=== PATIENT | female | born 1985 | race Caucasian/White ===

== ENCOUNTER 2019-11-04 01:58 | Outpatient (CLI) | payer BC, SELFPAY ==
[2019-11-04 18:39] LABS: SARS-CoV-2 RNA PCR Negative
== END 2019-11-04 01:59 | disposition home or self-care (01) ==
LOC: ANHCOVIDDT 01:58
PROVIDERS: PCP Family Medicine; Visit Provider Obstetrics & Gynecology
DX: Z01.812 Encounter for preprocedural laboratory examination (principal); Z11.59 Encounter for screening for other viral diseases
CPT/HCPCS: 87635; C9803; U0003

== ENCOUNTER 2019-11-04 09:25 | Outpatient (CLI) | payer BC, SELFPAY ==
[2019-11-04 09:46] LABS: Hemoglobin 12.9 g/dL (12.0-15.0)
== END 2019-11-04 09:26 | disposition home or self-care (01) ==
LOC: ANHSURGERY 09:27
PROVIDERS: PCP Family Medicine; Visit Provider Obstetrics & Gynecology
DX: N92.6 Irregular menstruation, unspecified (principal)
CPT/HCPCS: 36415; 85014; 85018

== ENCOUNTER 2019-11-06 02:22 | Day surgery (SDC) | payer BC, SELFPAY ==
[2019-10-22 16:13] VITALS: BMI 35.6
--- NOTE | 2019-11-04 08:03 | PM.IMHP ---
H&P: HPI History of Present Illness Chief complaint: Irregular Bleeding ,Uterine Polyp Narrative: Blessing Evans is a 34 year old female is admitted for hysteroscopy dilatation curettage. She has had a lot of bleeding and had an ultrasound. Ultrasound showed thickened endometrium questionable uterine polyp. Risks and benefits of hysteroscopy and D&C reviewed in great detail. She received the [employer] handout entitled hysteroscopy, and dilatation curettage, respectively. She had all questions answered. She asked to proceed Review of Systems Review of Systems: All systems reviewed & are unremarkable except as noted in HPI and below PMFSH Family History Family History Grandparent Cerebrovascular accident Diabetes mellitus Malignant neoplasm of prostate Family history of coronary artery disease Mother Family history of glaucoma Father Hypertension Social History Social History Smoking status: Never smoker Alcohol intake: current Drinks per week: 1 Substance use: never Substance use type: does not use Gender identity (if verbalized by the patient): Female Spiritual care concerns: No Meds Home Medications and Allergies Home Medications Medication Instructions Recorded Confirmed Type latanoprost 0.005 % eye drops 1 drop EACH EYE DAILY 10/05/19 10/22/19 History timolol 0.5 % eye drops 1 drop EACH EYE Q12H 10/05/19 10/22/19 History Allergies Allergy/AdvReac Type Severity Reaction Status Date / Time No Known Allergies Allergy Verified 10/22/19 16:13 Exam Const: General: no acute distress Eyes: General: appearance normal, both eyes and all related structures Neck: Neck: supple and no JVD Thyroid: thyroid normal Resp: Effort & Inspection: normal respiratory effort Auscultation: clear to auscultation bilaterally Cardio: Rate: regular rate Rhythm: regular rhythm GI: Inspection: non-distended GI Palp: Yes Soft to palpation, No Tenderness to palpation present (GI) and No Guarding due to palpation present (GI) Auscultation: normal bowel sounds : General: Yes bladder normal to inspection External Female Exam: normal external appearance Speculum Exam - Vagina: normal palpation and vaginal bleeding Bimanual exam- vagina & uterus: enlarged Bimanual Exam- Adnexa, other: no masses Skin: General skin exam: no rashes or lesions noted Extrem: General: normal to inspection and no edema Psych: Mental Status: mental status grossly normal Affect: normal affect Assessment and Plan Additional Plan impression: Vaginal bleeding with suspected polyp Plan: Hysteroscopy / dilatation curettage / possible polypectomy
--- NOTE | 2019-11-06 02:36 | WPDHPUPDATE1 ---
History and Physical Update Update Date/Time: 11/06/19 02:36 History and Physical has been reviewed, including an updated exam of the patient. There are NO changes in the patient's condition. Risks, benefits, and alternatives have been discussed and questions answered. Patient agrees to proceed with procedure.
--- NOTE | 2019-11-06 09:53 | WPDANESEPPF ---
Anes - Initial Pre Proc Eval Procedure: Operation Date: 11/06/19 11:30 Proposed Procedures p Hysteroscopy Dilation and Curettage, Polypectomy - Elias Huddleston MD Date/Time: 11/06/19 09:53 Surgeon: Elias Huddleston MD Pre Op Diagnosis: Irregular Bleeding ,Uterine Polyp Patient Data Age: 34 Gender: F Height: 1.8 m Weight: 116 kg Allergies Allergy/AdvReac Type Severity Reaction Status Date / Time No Known Allergies Allergy Verified 10/22/19 16:13 Home Medications Medication Instructions Recorded Confirmed Type latanoprost 0.005 % eye drops 1 drop EACH EYE DAILY 10/05/19 10/22/19 History timolol 0.5 % eye drops 1 drop EACH EYE Q12H 10/05/19 10/22/19 History hydrocodone-acetaminophen [[place]] 1 tablet PO Q4H PRN #20 tablet 11/06/19 Rx Patient hx anesthesia problems: none Family hx anesthesia problems: none PMFSH Past Medical History Medical History (Updated 11/06/19 @ 09:54 by Joshua Jovel MD) Eczema Obesity PCOS (polycystic ovarian syndrome) Family History Family History Grandparent Cerebrovascular accident Diabetes mellitus Malignant neoplasm of prostate Family history of coronary artery disease Mother Family history of glaucoma Father Hypertension Social History Social History Smoking status: Never smoker Alcohol intake: current Drinks per week: 1 Substance use: never Substance use type: does not use Living arrangements: with family Gender identity (if verbalized by the patient): Female Spiritual care concerns: No Anes - Eval Final PreProcedure Day of Procedure 11/06/19 09:53 Patient weight: obese Heart: regular rate and rhythm Lungs: clear to auscultation and normal air movement Airway: Mallampati scale class II Neurological: alert and oriented Last oral intake: >/= 8 hours ASA classification: II Emergent: no Anesthetic plan: proceed Anesthesia type and monitoring: general GIVS and LMA Informed Consent: The patient's anesthetic plan and its attendant risks and benefits were discussed with the patient/family/POA. Questions were solicited and answers provided to the satisfaction of the patient/family/POA.
[2019-11-06 09:56] VITALS: BP 133/80; PULSE 67; RESP 17; TEMP 36.4; O2SAT 100
[2019-11-06] MEDS: LACTATED RINGERS 1,000 ML 30 ML IV CONT (10:20)
[2019-11-06] MEDS: ACETAMINOPHEN 500 MG TABLET 1000 MG PO (10:25)
--- NOTE | 2019-11-06 11:36 | PM.PROC ---
Procedure Note - Detailed Date of procedure: 11/06/19 Pre-op diagnosis: Irregular Bleeding ,Uterine Polyp Surgeon: Elias Huddleston MD Postop diagnosis: Irregular bleeding Procedure: Hysteroscopy/dilatation curettage EBL: 5Cc Anesthesia: IV sedation local Complications: None Findings: Uterus sounded to 10cm thick irregular endometrial tissue was seen. Clots were seen. Each fallopian 2 Duff os could be seen and appeared normal Description procedure. : Patient was prepped draped in the normal sterile fashion placed in dorsal lithotomy position. Under excellent IV sedation weighted speculum placed in posterior fornix of vagina. Anterior lip of cervix was grasped with a single-tooth tenaculum. 2. 5Cc of 1% lidocaine was placed at 2, 4, 8, 10:00 a.m. in the cervix. The uterus sounded to 10cm. Serial dilatation with fragmented dilators performed followed by passage of the 5mm visualizing hysteroscope. Normal saline was used as visualizing medium. Clots and irregular tissue was seen but no evidence of scattered or other obvious pathology. Each fallopian tube os could be seen. The uterus was then scraped over the entire 360? until a good grating sound was heard removing a moderate amount of tissue. When a good grating sound was heard the procedure was finished. All sponge, needle, instrument counts were correct. Patient went to recovery in satisfactory condition there were no immediate complications
[2019-11-06 11:41] VITALS: BP 119/67; PULSE 70; RESP 14; O2SAT 97
[2019-11-06 12:10] VITALS: BP 131/68; PULSE 70; RESP 16; O2SAT 98
[2019-11-06 12:40] VITALS: BP 123/66; PULSE 50; RESP 16
[2019-11-06 13:10] VITALS: BP 122/62; PULSE 52; RESP 16
== END 2019-11-06 13:25 | disposition home or self-care (01) ==
PROVIDERS: PCP Family Medicine; Visit Provider Obstetrics & Gynecology
PROC: 0U5B8ZZ Destruction of Endometrium, Via Natural or Artificial Opening Endoscopic (ICD-10-PCS; CPT 58563; principal; 2019-11-06 11:30)
DX: N93.9 Abnormal uterine and vaginal bleeding, unspecified (principal); R93.89 Abnormal findings on diagnostic imaging of other specified body structures; E66.9 Obesity, unspecified; Z68.35 Body mass index [BMI] 35.0-35.9, adult
CPT/HCPCS: 58558; 88305; A9270; J2250; J2704; J3010; J7030; J7120

== ENCOUNTER 2020-07-03 22:00 | Observation (INO) | payer BC, SELFPAY ==
[2020-07-03 21:30] VITALS: BP 141/96; PULSE 93; RESP 18; TEMP 36.3; O2SAT 99
--- NOTE | 2020-07-03 21:48 | ED.GENADULT ---
HPI - General Adult General Chief complaint: Vaginal Bleeding Stated complaint: vaginal bleeding, 24 weeks Time Seen by Provider: 07/03/20 21:46 Source: RN notes reviewed History of Present Illness HPI narrative: Patient presents to emergency department from home for vaginal bleeding. Patient is approximately 24 weeks states she has a history of a low-lying placenta and is being followed by Dr. Lorena Russell. Patient states proximally 45 minutes ago she had a gush of bright red blood and has had some mild spotting since that time she states she is instructed to come to the hospital for any bleeding patient states that this is her seventh she denies any abdominal pain nausea vomiting or any other symptoms Related Data Home Medications Medication Instructions Recorded Confirmed latanoprost 0.005 % eye drops 1 drop EACH EYE DAILY 10/05/19 10/22/19 timolol 0.5 % eye drops 1 drop EACH EYE Q12H 10/05/19 10/22/19 labetalol 07/03/20 Allergies Allergy/AdvReac Type Severity Reaction Status Date / Time No Known Allergies Allergy Verified 07/03/20 21:42 Review of Systems Review of Systems: Narrative: Gen.: Denies fevers or chills ENT: Denies congestion Respiratory: Denies shortness of breath or cough CV: Denies chest pain or palpitations GI: Denies abdominal pain nausea, emesis or diarrhea see HPI Musculoskeletal: Denies back pain or muscle pain Neuro: Denies numbness, tingling, weakness or focal weakness Skin: Denies rash Except as documented, all other systems reviewed and negative PMFSH Past Medical History Medical History Eczema Obesity PCOS (polycystic ovarian syndrome) Surgical History Surgical History (Updated 02/17/20 @ 16:54 by Cesar Dias MD) S/P laser trabeculoplasty of eye Family History Family History Grandparent Cerebrovascular accident Diabetes mellitus Malignant neoplasm of prostate Family history of coronary artery disease Mother Family history of glaucoma Father Hypertension Social History Social History Smoking status: Never smoker Alcohol intake: current Drinks per week: 1 Substance use: never Substance use type: does not use Gender identity (if verbalized by the patient): Female Spiritual care concerns: No Exam Narrative: Exam Narrative: APPEARANCE: No acute distress, nontoxic, resting in bed EYES: EOMI HEENT: Normocephalic, atraumatic, OMM RESPIRATORY: No respiratory distress Clear to auscultation bilaterally with no rhonchi wheezing or rales. CARDIOVASCULAR: Regular rate and rhythm without murmurs rubs or gallops. ABDOMINAL: Gravid uterus palpated nontender palpation no rebound or guarding MUSCULOSKELETAl: Moves all extremities. No clubbing, cyanosis or edema. NEURO: Awake and alert. Following commands, speech normal, no focal deficits SKIN:: Warm, dry. No rashes lesions or abrasions PSYCHIATRIC: Normal affect/mood, Course Course Emergency Course: Called discussed Dr. Simms presentation work-up at this time recommends the patient be sent over to OB for further monitoring and evaluation Discussed with patient and will send over to OB at this time Vital Signs Vital signs: Vital Signs Temperature 97.4 F L 07/03/20 21:30 Pulse Rate 93 07/03/20 21:30 Respiratory Rate 18 07/03/20 21:30 Blood Pressure 141/96 H 07/03/20 21:30 Pulse Oximetry 99 07/03/20 21:30 Temperature 97.4 F L 07/03/20 21:30 Pulse Rate 93 07/03/20 21:30 Respiratory Rate 18 07/03/20 21:30 Blood Pressure 141/96 H 07/03/20 21:30 Pulse Oximetry 99 07/03/20 21:30 Medical Decision Making Vital Signs Vital Signs: Vital Signs Temperature 97.4 F L 07/03/20 21:30 Pulse Rate 93 07/03/20 21:30 Respiratory Rate 18 07/03/20 21:30 Blood Pressure 141/96 H 07/03
--- NOTE | 2020-07-03 21:54 | PC.NURSE ---
Spoke with Letty in OB about pt going to be seen in their department.
--- NOTE | 2020-07-03 21:58 | PC.NURSE ---
Patient taken to OB at this time.
[2020-07-03 22:15] VITALS: BP 142/68; PULSE 81
[2020-07-03 22:16] VITALS: BP 135/66; PULSE 83
[2020-07-03 22:31] VITALS: BP 145/76; PULSE 91
--- NOTE | 2020-07-03 22:36 | LDADM ---
This patient, Blessing Evans, was admitted to OB Post 113 on 07/03/20 at 22:00. Plans for labor, pain management and were discussed with patient. Patient/family oriented to hospital policies and general routines including ID bracelet, bed and alarms, visiting hours, pain management, procedures, bathroom and other care routines, personal items, smoking policy, room service/diet and guest tray routines, infant security routines, and visiting hours. Patient/Family are encouraged to report perceived risks to care and to ask questions if they do not understand what they are told or what they should do. See OBIX for further documentation.
[2020-07-03 23:10] VITALS: BMI 36.7
--- NOTE | 2020-07-03 23:20 | PC.NURSE ---
220- PT BROUGHT TO L&D FROM ED FOR VAGINAL BLEEDING. LOW LYING PLACENTA WITH THIS . PT STATES THAT SHE HAD A GUSH OF BRIGHT RED BLOOD AT 2100 WITH SMALL SPOTTING ON PAD AFTER. NO BLEEDING CURRENTLY. [id number]. NO CONTRACTIONS PER PT. 2220- PAGED DR. ARSHAD FOR DR. SONALI PANDA 2221- DR. ARSHAD RETURNED PAGE- INFORMED OF PT ADMISSION. NO CURRENT BLEEDING. BLOOD TYPE O+, FHT-REVIEWED. ORDER TO D/C HOME ON PELVIC REST. PT TO CALL OFFICE IN AM TO MAKE F/U APPT WITH DR. SONALI PANDA.
--- NOTE | 2020-07-07 13:11 | P.PNOB_ITS ---
OB - Triage/Final Diagnosis Visit Information Date of evaluation: 07/03/20 Reason for evaluation: other (vaginal bleeding in ) Comments/Additional reasons for admission: I have assessed the risk for this patient, Blessing Inderjit [place], and determined that she would benefit from observation care.
== END 2020-07-03 22:56 | disposition still patient (30) ==
PROVIDERS: Admitting Provider Student in an Organized Health Care Education/Training Program; Emergency Provider Emergency Medicine; PCP Family Medicine; Visit Provider Student in an Organized Health Care Education/Training Program
DX: O26.852 Spotting complicating pregnancy, second trimester (principal); Z3A.24 24 weeks gestation of pregnancy
CPT/HCPCS: G0378; G0379

== ENCOUNTER 2020-07-16 18:24 | Observation (INO) | payer BC, SELFPAY ==
--- NOTE | ~2020-07-16 | US_ITS ---
EXAMINATION: US OB limited DATE: 07/16/2020 20:27 INDICATION: Vaginal bleeding. Estimated gestational age of 25 weeks and 6 days. TECHNIQUE: Real-time ultrasound of the pelvis was performed. COMPARISON: None. FINDINGS: There is a single fetus in breech presentation. The placenta is posterior, 2.6 cm from the cervix. F etal heart rate is 161 beats per minute (bpm). The amniotic fluid volume is subjectively normal. IMPRESSION: 1. Single living fetus in breech presentation. 2. Normal placenta. Reviewed, dictated and finalized at location A.
[2020-07-16 18:46] VITALS: BP 142/76; PULSE 89
[2020-07-16 19:01] VITALS: BP 147/81; PULSE 86
[2020-07-16 19:16] VITALS: BP 146/79; PULSE 76
[2020-07-16 19:37] LABS: Basophils Percent Auto 0.1 % (0.2-1.2); Eosinophils Absolute Auto 0.2 K/mm3 (0-0.3); Eosinophils Percent Auto 1.4 % (0-4.4); Hematocrit 35.7 % (37.0-47.0); Hemoglobin 12.2 g/dL (12.0-15.0); Immature Granulocyte Absolute 0.06 K/mm3 (0.00-0.031); Immature Granulocyte Percent A 0.5 % (0-0.5); Lymphocytes Absolute Auto 1.94 K/mm3 (0.9-3.2); Lymphocytes Percent Auto 15.4 % (18.3-44.2); Mean Corpuscular HGB Conc 34.2 g/dl (32-36); Mean Corpuscular Hemoglobin 31.6 pg (26-34); Mean Corpuscular Volume 92.5 fl (80-100); Mean Platelet Volume 11.8 fl (7.4-10.4); Monocytes Absolute Auto 0.9 K/mm3 (0.1-0.6); Monocytes Percent Auto 6.9 % (2.6-8.5); Neutrophils Absolute Auto 9.5 K/mm3 (1.3-6.7); Neutrophils Percent Auto 75.7 % (45.5-73.1); Platelet Count Result 180 k/mm3 (150-375); Red Blood Count 3.86 M/mm3 (4.2-5.4); Red Cell Distribution Width 14.4 % (11.5-14.5); White Blood Count 12.6 K/mm3 (4.5-10.0)
[2020-07-16 21:27] VITALS: BMI 38.8
--- NOTE | 2020-07-16 21:27 | OBADM ---
This patient, Blessing Evans, admitted to the OB room OB Post 115 for observation. Patient/family oriented to hospital policies and general routines including ID bracelet, bed and alarms, visiting hours, pain management, procedures, bathroom and other care routines, personal items, smoking policy, room service/diet, and visiting hours. Patient/Family are encouraged to report perceived risks to care and to ask questions if they do not understand what they are told or what they should do.
--- NOTE | 2020-07-19 13:41 | P.PNOB_ITS ---
OB - Triage/Final Diagnosis Visit Information Date of evaluation: 07/16/20 Reason for evaluation: other (bleeding) Comments/Additional reasons for admission: I have assessed the risk for this patient, Blessing Evans, and determined that she would benefit from obse rvation care. Evaluation Laboratory results: Laboratory Tests 07/16/20 19:30 WBC 12.6 H RBC 3.86 L Hgb 12.2 Hct 35.7 L MCV 92.5 MCH 31.6 MCHC 34.2 RDW 14.4 Plt Count 180 MPV 11.8 H Immature Gran % (Auto) 0.5 Neut % (Auto) 75.7 H Lymph % (Auto) 15.4 L [place] % (Auto) 6.9 Eos % (Auto) 1.4 Baso % (Auto) 0.1 L Lymph # (Auto) 1.94 [place] # (Auto) 0.9 H Eos # (Auto) 0.2 Baso # (Auto) 0.0 Abs Immat Gran (auto) 0.06 H Absolute Neuts (auto) 9.5 H Absolute Nucleated RBC 0.0 Nucleated RBC % 0.0
== END 2020-07-16 21:15 | disposition home or self-care (01) ==
PROVIDERS: Admitting Provider Obstetrics & Gynecology; PCP Family Medicine; Visit Provider Obstetrics & Gynecology
DX: O26.852 Spotting complicating pregnancy, second trimester (principal); Z3A.25 25 weeks gestation of pregnancy
CPT/HCPCS: 36415; 76815; 85025; G0378; G0379

== ENCOUNTER 2020-09-06 13:00 | Outpatient (RCR) | payer BC, SELFPAY ==
[2020-09-06 12:03] VITALS: BMI 39.4
== END 2020-11-21 12:00 | disposition home or self-care (01) ==
LOC: ANHDMC 13:00
PROVIDERS: PCP Family Medicine; Visit Provider Obstetrics & Gynecology
DX: O24.319 Unspecified pre-existing diabetes mellitus in pregnancy, unspecified trimester (principal); Z71.3 Dietary counseling and surveillance; Z71.89 Other specified counseling
CPT/HCPCS: 97802; G0108

== ENCOUNTER 2020-10-05 11:44 | Observation (INO) | payer BC, SELFPAY ==
--- NOTE | ~2020-10-05 | US_ITS ---
EXAMINATION: US OB limited w BPP DATE: 10/05/2020 14:25 INDICATION: Assess placenta and biophysical profile during third trimester TECHNIQUE: Real-time pelvic ultrasound was performed. The interpreting radiologist was not present fo r the study. COMPARISON: None. FINDINGS: There is a single living fetus in vertex presentation. The placenta is posterior fundal and not low- lying with caudal margin 6.5 cm from the internal cervical os. heart rate is 122 beats per meg te (bpm). Normal amniotic fluid index of 14.6 cm (5th%-95%: 7.5-24.4 cm at 37 weeks estimated gestati onal age). Biophysical profile performed by the technologist: breathing (30 sec sustained breathing in 30 minutes): 2 out of 2 movement (3 gross body movements in 30 minutes): 2 out of 2 tone (one episode of nqlttmp-[id number] limb movement): 2 out of 2 Amniotic fluid pocket (2 cm): 2 out of 2 Total score: 8 out of 8 IMPRESSION: 1. Single living fetus in vertex presentation with heart rate of 122 bpm. 2. Biophysical profile 8 out of 8. Reviewed, dictated and finalized at location A.
--- NOTE | 2020-10-05 13:44 | OBADM ---
This patient, Blessing Evans, admitted to the OB room Labor/Delivery/Recovery 104 for observation. Patient/family oriented to hospital policies and general routines including ID bracelet, bed and alarms, visiting hours, pain management, procedures, bathroom and other care routines, personal items, smoking policy, room service/diet, and visiting hours. Patient/Family are encouraged to report perceived risks to care and to ask questions if they do not understand what they are told or what they should do.
--- NOTE | 2020-10-06 07:31 | PM.OBTRLD ---
OB - Triage/Final Diagnosis Visit Information Reason for evaluation: threatened labor and other (spotting) Comments/Additional reasons for admission: I have assessed the risk for this patient, Blessing Inderjit [place], and determined that she would benefit from observation care.
== END 2020-10-05 15:00 | disposition home or self-care (01) ==
PROVIDERS: Admitting Provider Obstetrics & Gynecology; PCP Family Medicine; Visit Provider Obstetrics & Gynecology
DX: O47.1 False labor at or after 37 completed weeks of gestation (principal); O26.853 Spotting complicating pregnancy, third trimester; Z3A.37 37 weeks gestation of pregnancy
CPT/HCPCS: 76815; 76819; G0378; G0379

== ENCOUNTER 2020-10-11 05:53 | Inpatient (IN) | payer BC, SELFPAY ==
[2020-10-11] VITALS (193 sets, daily range): BP systolic 105–165; BP diastolic 54–110; PULSE 25–190; RESP 13–18; TEMP 36.1–37.1; O2SAT 90–100; BMI 38.8
--- NOTE | 2020-10-11 05:53 | LDADM ---
This patient, Blessing Evans, was admitted to Labor/Delivery/Recovery 107 on 10/11/20 at 05:53. Plans for labor, pain management and were discussed with patient. Patient/family oriented to hospital policies and general routines including ID bracelet, bed and alarms, visiting hours, pain management, procedures, bathroom and other care routines, personal items, smoking policy, room service/diet and guest tray routines, security routines, and visiting hours. Patient/Family are encouraged to report perceived risks to care and to ask questions if they do not understand what they are told or what they should do. See OBIX for further documentation.
--- NOTE | 2020-10-11 06:28 | WPDANESEPP ---
Anes - Eval Pre Procedure Procedure: Labor epidural Date/Time: 10/11/20 06:28 Surgeon: Lorena jackson Preop Diagnosis: pain during labor Pre Op Diagnosis: IOL Patient Data Age: 35 Gender: F Height: Weight: Last Vital Signs Pulse 90 10/11/20 06:16 BP 113/78 10/11/20 06:16 Allergies Allergy/AdvReac Type Severity Reaction Status Date / Time No Known Allergies Allergy Verified 07/03/20 21:42 Home Medications Medication Instructions Recorded Confirmed Type latanoprost 0.005 % eye drops 1 drop EACH EYE DAILY 10/05/19 09/28/20 History timolol 0.5 % eye drops 1 drop EACH EYE Q12H 10/05/19 09/28/20 History labetalol 200 mg PO BID 07/03/20 09/28/20 History 1 tab-cap PO DAILY 07/16/20 09/28/20 History Patient hx anesthesia problems: none Family hx anesthesia problems: none PMFSH Past Medical History Medical History (Updated 10/11/20 @ 06:29 by Amy Byrne CRNA) Eczema Glaucoma Obesity PCOS (polycystic ovarian syndrome) Surgical History Surgical History (Updated 02/17/20 @ 16:54 by Cesar Dias MD) S/P laser trabeculoplasty of eye Family History Family History Grandparent Cerebrovascular accident Diabetes mellitus Malignant neoplasm of prostate Family history of coronary artery disease Mother Family history of glaucoma Father Hypertension Social History Social History Smoking status: Never smoker Alcohol intake: current Drinks per week: 1 Substance use: never Substance use type: does not use Gender identity (if verbalized by the patient): Female Spiritual care concerns: No Exam Day of Procedure 10/11/20 06:28
[2020-10-11 06:32] LABS: Basophils Percent Auto 0.1 % (0.2-1.2); Eosinophils Absolute Auto 0.1 K/mm3 (0-0.3); Eosinophils Percent Auto 1.3 % (0-4.4); Hematocrit 33.5 % (37.0-47.0); Hemoglobin 10.8 g/dL (12.0-15.0); Immature Granulocyte Absolute 0.04 K/mm3 (0.00-0.031); Immature Granulocyte Percent A 0.4 % (0-0.5); Lymphocytes Absolute Auto 1.53 K/mm3 (0.9-3.2); Lymphocytes Percent Auto 15.6 % (18.3-44.2); Mean Corpuscular HGB Conc 32.2 g/dl (32-36); Mean Corpuscular Hemoglobin 28.3 pg (26-34); Mean Corpuscular Volume 87.9 fl (80-100); Mean Platelet Volume 12.7 fl (7.4-10.4); Monocytes Absolute Auto 0.6 K/mm3 (0.1-0.6); Neutrophils Absolute Auto 7.5 K/mm3 (1.3-6.7); Neutrophils Percent Auto 76.6 % (45.5-73.1); Platelet Count Result 186 k/mm3 (150-375); Red Blood Count 3.81 M/mm3 (4.2-5.4); Red Cell Distribution Width 14.3 % (11.5-14.5); White Blood Count 9.8 K/mm3 (4.5-10.0)
[2020-10-11] MEDS: OXYTOCIN 30 UNITS/NS 500 ML 30 UNITS/500 ML BAG IV CONT (06:33)
[2020-10-11] MEDS: LACTATED RINGERS 1,000 ML 125 ML IV CONT ×2 (06:34→14:00)
[2020-10-11 06:46] LABS: Alanine Aminotransferase 14 U/L (4-35); Albumin Level 3.4 g/dL (3.5-5.1); Alkaline Phosphatase 108 U/L (38-126); Anion Gap 9 mmol/L (8-16); Aspartate Amino Transferase 20 U/L (14-36); Bilirubin,Total 0.4 mg/dL (0.2-1.3); Blood Urea Nitrogen 6 mg/dL (7-17); Calcium 9.2 mg/dL (8.4-10.2); Carbon Dioxide 20 mmol/L (22-30); Chloride 108 mmol/L (98-107); Estimated Glomerular Filt Rate > 60; Glucose 97 mg/dL (65-105); Potassium 3.2 mmol/L (3.4-5.0); Sodium 137 mmol/L (137-145); Uric Acid 4.6 mg/dL (2.5-7.5)
--- NOTE | 2020-10-11 07:24 | PM.IMHP ---
H&P: HPI History of Present Illness Date/Time: 10/11/20 07:24 35-year-old 6 para 2 whose last menstrual period was early January, EDC is 10/23/2020 confirmed by 6 week ultrasound, presents at 38 weeks gestation for induction of labor she has had diet-controlled gestational diabetes and her blood pressures are elevated. She has a history of low-lying placenta which resolved but has continued to have vaginal bleeding. In light of the above findings she is admitted at 38 weeks gestation for delivery Chief Complaint: induction of labor at term Review of Systems Review of Systems: All systems reviewed & are unremarkable except as noted in HPI and below PMFSH Past Medical History Medical History Eczema Glaucoma Obesity PCOS (polycystic ovarian syndrome) Surgical History Surgical History S/P laser trabeculoplasty of eye Family History Family History Grandparent Cerebrovascular accident Diabetes mellitus Malignant neoplasm of prostate Family history of coronary artery disease Mother Family history of glaucoma Father Hypertension Social History Social History Smoking status: Never smoker Second hand tobacco smoke exposure: No Alcohol intake: current Drinks per week: 1 Substance use: never Substance use type: does not use Gender identity (if verbalized by the patient): Female Spiritual care concerns: No Meds Home Medications and Allergies Home Medications Medication Instructions Recorded Confirmed Type latanoprost 0.005 % eye drops 1 drop EACH EYE DAILY 10/05/19 10/11/20 History timolol 0.5 % eye drops 1 drop EACH EYE Q12H 10/05/19 10/11/20 History labetalol 200 mg PO BID 07/03/20 10/11/20 History 1 tab-cap PO DAILY 07/16/20 10/11/20 History Allergies Allergy/AdvReac Type Severity Reaction Status Date / Time No Known Allergies Allergy Verified 07/03/20 21:42 Vital Signs Vital Signs - 24 hr 10/11/20 06:04 10/11/20 06:16 10/11/20 06:30 Temperature 97.4 F L Pulse Rate 93 90 Blood Pressure 143/93 H 113/78 10/11/20 06:31 10/11/20 06:46 10/11/20 07:01 Temperature Pulse Rate 87 79 80 Blood Pressure 113/54 L 124/78 121/74 10/11/20 07:16 Temperature Pulse Rate 82 Blood Pressure 105/62 Exam Const: General: no acute distress Eyes: General: appearance normal, both eyes and all related structures Neck: Neck: supple and no JVD Thyroid: thyroid normal Resp: Effort & Inspection: normal respiratory effort Auscultation: clear to auscultation bilaterally Cardio: Rate: regular rate Rhythm: regular rhythm GI: Inspection: non-distended GI Palp: Yes Soft to palpation, No Tenderness to palpation present (GI) and No Guarding due to palpation present (GI) Auscultation: normal bowel sounds : External Female Exam: normal external appearance Speculum Exam - Vagina: normal appearance of the vagina Speculum Exam - Cervix: normal appearance of the cervix ( cervix 2/50/2. AROM minimal fluid. FHTs reassuring) Skin: General skin exam: no rashes or lesions noted Extrem: General: normal to inspection and no edema Psych: Mental Status: mental status grossly normal Affect: normal affect H&P: Results Labs Labs: Short CBC 10/11/20 Range/Units 06:25 WBC 9.8 (4.5-10.0) K/mm3 Hgb 10.8 L (12.0-15.0) g/dL Hct 33.5 L (37.0-47.0) % Plt Count 186 (150-375) k/mm3 BMP 10/11/20 06:25 Sodium 137 Potassium 3.2 L Chloride 108 H Carbon Dioxide 20 L BUN 6 L Creatinine 0.60 L Glucose 97 Calcium 9.2 Liver Function 10/11/20 Range/Units 06:25 Total Bilirubin 0.4 (0.2-1.3) mg/dL AST 20 (14-36) U/L ALT 14 (4-35) U/L Alkaline Phosphatase 108 (38-126) U/L Albumin 3.4 L
[2020-10-11 08:26] LABS: Rapid Plasma Reagin Non-Reactive (NonReactive)
[2020-10-11 11:32] LABS: Glucose Point of Care 78 mg/dl (65-105)
--- NOTE | 2020-10-11 13:28 | PM.OBPNVD ---
OB - PN: Subj Subjective Date/time seen: 10/11/20 13:28 bleeding continues/now with some variable. cx still 4 cm/clots continue will proceed with section OB - PN: Obj Data Labs CBC & Chem 7: 10/11/20 06:25 10/11/20 06:25 Labs: Laboratory Results - last 24 hr 10/11/20 10/11/20 10/11/20 06:25 06:25 06:25 WBC 9.8 RBC 3.81 L Hgb 10.8 L Hct 33.5 L MCV 87.9 MCH 28.3 MCHC 32.2 RDW 14.3 Plt Count 186 MPV 12.7 H Immature Gran % (Auto) 0.4 Neut % (Auto) 76.6 H Lymph % (Auto) 15.6 L [place] % (Auto) 6.0 Eos % (Auto) 1.3 Baso % (Auto) 0.1 L Lymph # (Auto) 1.53 [place] # (Auto) 0.6 Eos # (Auto) 0.1 Baso # (Auto) 0.0 Abs Immat Gran (auto) 0.04 H Absolute Neuts (auto) 7.5 H Absolute Nucleated RBC 0.0 Nucleated RBC % 0.0 Sodium Potassium Chloride Carbon Dioxide Anion Gap BUN Creatinine Estim Creat Clear Calc Estimated GFR Glucose POC Capillary Glucose Uric Acid Calcium Total Bilirubin AST ALT Alkaline Phosphatase Total Protein Albumin RPR Non-reactive Blood Type O Positive Antibody Screen Negative 10/11/20 10/11/20 06:25 11:17 WBC RBC Hgb Hct MCV MCH MCHC RDW Plt Count MPV Immature Gran % (Auto) Neut % (Auto) Lymph % (Auto) [place] % (Auto) Eos % (Auto) Baso % (Auto) Lymph # (Auto) [place] # (Auto) Eos # (Auto) Baso # (Auto) Abs Immat Gran (auto) Absolute Neuts (auto) Absolute Nucleated RBC Nucleated RBC % Sodium 137 Potassium 3.2 L Chloride 108 H Carbon Dioxide 20 L Anion Gap 9 BUN 6 L Creatinine 0.60 L Estim Creat Clear Calc Not Reportable Estimated GFR > 60 Glucose 97 POC Capillary Glucose 78 Uric Acid 4.6 Calcium 9.2 Total Bilirubin 0.4 AST 20 ALT 14 Alkaline Phosphatase 108 Total Protein 6.0 L Albumin 3.4 L RPR Blood Type Antibody Screen OB - PN A/P Time Spent With Patient Time: Total time spent is greater than 50% in coordination of care (as documented) at patient's floor/unit and/or counseling patient:
--- NOTE | 2020-10-11 13:32 | WPDANESEFPP ---
Anes - Eval Final PreProcedure Day of Procedure 10/11/20 13:32 Patient weight: obese Heart: regular rate and rhythm Lungs: clear to auscultation Airway: Mallampati scale class II Neurological: alert and oriented Last oral intake: 2 hours (clears) ASA classification: II Anesthetic plan: proceed Anesthesia type and monitoring: regional epidural and standard monitoring Informed Consent: The patient's anesthetic plan of existing epidural for C/S and its attendant risks and benefits were discussed with the patient/family/POA. Questions were solicited and answers provided to the satisfaction of the patient/family/POA.
--- NOTE | 2020-10-11 14:30 | W.PM.PROC2 ---
Procedure Note - Detailed Date of Procedure 10/11/20 Pre-op Diagnosis IOL Post-op Diagnosis other ( intolerance to labor) Procedure Performed primary low transverse section Surgeon Elias Huddleston MD Anesthesia epidural Indications this patient was admitted for induction of labor secondary to elevated blood pressures, gestational diabetes, and vaginal bleeding. She underwent induction of labor and had heart tones which were not reassuring. There is also a fair amount of bleeding up to a bed 900cc during labor process. Findings 6 lb 12 oz male with Apgars of 8 and 9 at 1 and 5 minutes respectively. No demonstrable reason for vaginal bleed Description of Procedure ing the patient was prepped and draped in the normal sterile fashion placed in supine position. Under excellent epidural anesthesia the abdomen was entered in Pfannenstiel fashion and progressive layers to the fascia. Fascia was incised upward outward fashion bilaterally. The underlying muscles the Scharff and the peritoneum entered by sharp dissection this was carried superiorly and inferiorly the dome of the bladder. Bladder blade was placed and a bladder flap formed. The bladder blade returned a low transverse incision made. The head delivered in the ALEXUS position. Anterior posterior shoulder delivered spontaneously. Cord clamped x2 and cut passed off the table given Apgars of 8 [id number] 9 [id number]. Cord blood was drawn. Placenta delivered intact manually. Uterus delivered on the abdomen wrapped in a moist towel. After assuring no membranes or debris remained in the uterus, the uterus was closed continuous running locking 0 Vicryl from lateral edge to lateral edge. This was followed by a 2nd running imbricating 0 Vicryl from lateral edge to lateral edge. Hemostasis was assured. The ovaries and tubes appeared within normal limits and the uterus returned to the abdomen. The uterine incision inspected 1 last time and noted be hemostatic. Laps removed and accounted for. The fascia was closed with continuous running 0 Vicryl from lateral edge to midline bilaterally. Irrigation subcutaneous layer and the skin closed with 4 Monocryl glue. Q BL was 635cc. All sponge, needle, instrument counts were correct. There were no immediate complications. Mom and baby doing well at the time of dictation Estimated Blood Loss 635 Drains No Packing No Pathology yes Complications No immediate complications Condition stable Disposition floor
--- NOTE | 2020-10-11 14:45 | SUR.OPER ---
DR. SONALI PANDA CALLED BACK TO ROOM TO ASSESS BLEEDING.
--- NOTE | 2020-10-11 14:55 | SUR.OPER ---
PT PLACED IN STIRRUPS TO VISUALIZE CERVIX. VAGINAL PACKING PLACED X2.
[2020-10-11] MEDS: ceFAZolin 3 GM/D5W 100 ML 100 ML IVPB (15:32)
[2020-10-11] MEDS: fentaNYL CITRATE INJ (*CRX) 100 MCG/2 ML VIAL 25 MCG IV PUSH (15:51)
--- NOTE | 2020-10-11 16:02 | SUR.PHASEI ---
CALLED DR. SONALI PANDA WITH PT UPDATE. PT BLEEDING THROUGH VAGINAL PACKING. FUNDUS FIRM. VSS. ORDERS RECEIVED.
[2020-10-11] MEDS: METHYLERGONOVINE MALEATE 0.2 MG/ML VIAL IM (16:12)
[2020-10-11] MEDS: TRANEXAMIC ACID 1,000 MG/10 ML AMPUL 1000 MG IV PUSH (16:38)
--- NOTE | 2020-10-11 16:38 | SUR.PHASEI ---
TXA GIVEN IV PER ANESTHESIA.
[2020-10-11 16:41] LABS: Hemoglobin 10.4 g/dL (12.0-15.0)
--- NOTE | 2020-10-11 16:47 | SUR.PHASEI ---
CALLED DR. SONALI PANDA WITH H&H RESULTS. NO NEW ORDERS RECEIVED.
--- NOTE | 2020-10-11 17:20 | SUR.PHASEI ---
CALLED WITH ORDERS FOR H&H AT 1830.
[2020-10-11] MEDS: ONDANSETRON INJ 4 MG/2 ML VIAL IV PUSH (17:46)
[2020-10-11] MEDS: diphenhydrAMINE HCl INJ 50 MG/ML VIAL 25 MG IV PUSH (18:20)
[2020-10-11 18:36] LABS: Hematocrit 35.6 % (37.0-47.0); Hemoglobin 11.1 g/dL (12.0-15.0)
--- NOTE | 2020-10-11 18:56 | PC.NURSE ---
Dr. Lorena Russell updated with pt QBL, and labs. pt making urine and vss. Orders received to keep vaginal packing in till morning and she can have clear liquids as tolerated. Redraw hbg in AM.
[2020-10-11] MEDS: DEXTROSE 5%/0.45% SOD CHL 1,000 ML 125 ML IV CONT (22:00)
[2020-10-12] VITALS (9 sets, daily range): BP systolic 113–140; BP diastolic 60–83; PULSE 68–93; RESP 16–18; TEMP 36.4–37.1; O2SAT 97–100
[2020-10-12] MEDS: DEXTROSE 5%/0.45% SOD CHL 1,000 ML 125 ML IV CONT (04:27)
[2020-10-12] MEDS: KETOROLAC 30 MG/ML VIAL (*BKC) IV PUSH (04:27)
[2020-10-12 05:24] LABS: Basophils Percent Auto 0.2 % (0.2-1.2); Eosinophils Absolute Auto 0.1 K/mm3 (0-0.3); Eosinophils Percent Auto 0.8 % (0-4.4); Hematocrit 30.6 % (37.0-47.0); Hemoglobin 9.6 g/dL (12.0-15.0); Immature Granulocyte Absolute 0.06 K/mm3 (0.00-0.031); Immature Granulocyte Percent A 0.5 % (0-0.5); Lymphocytes Absolute Auto 0.99 K/mm3 (0.9-3.2); Lymphocytes Percent Auto 7.7 % (18.3-44.2); Mean Corpuscular HGB Conc 31.4 g/dl (32-36); Mean Corpuscular Hemoglobin 28.2 pg (26-34); Mean Platelet Volume 12.8 fl (7.4-10.4); Monocytes Absolute Auto 0.8 K/mm3 (0.1-0.6); Monocytes Percent Auto 6.1 % (2.6-8.5); Neutrophils Absolute Auto 10.8 K/mm3 (1.3-6.7); Neutrophils Percent Auto 84.7 % (45.5-73.1); Platelet Count Result 156 k/mm3 (150-375); Red Cell Distribution Width 14.3 % (11.5-14.5); White Blood Count 12.8 K/mm3 (4.5-10.0)
--- NOTE | 2020-10-12 07:19 | PM.OBPNVD ---
OB - PN: Subj Subjective Date/time seen: 10/12/20 07:19 Patient comments: no complaints and pain well controlled baby status: other (transferred) OB - PN: Obj Data Labs CBC & Chem 7: 10/12/20 05:01 10/11/20 06:25 Labs: Laboratory Results - last 24 hr 10/11/20 10/11/20 10/11/20 06:25 06:25 11:17 WBC RBC Hgb Hct MCV MCH MCHC RDW Plt Count MPV Immature Gran % (Auto) Neut % (Auto) Lymph % (Auto) Love % (Auto) Eos % (Auto) Baso % (Auto) Lymph # (Auto) Love # (Auto) Eos # (Auto) Baso # (Auto) Abs Immat Gran (auto) Absolute Neuts (auto) Absolute Nucleated RBC Nucleated RBC % POC Capillary Glucose 78 RPR Non-reactive Blood Type O Positive Antibody Screen Negative 10/11/20 10/11/20 10/12/20 16:26 18:32 05:01 WBC 12.8 H RBC 3.40 L Hgb 10.4 L 11.1 L 9.6 L Hct 33.0 L 35.6 L 30.6 L MCV 90.0 MCH 28.2 MCHC 31.4 L RDW 14.3 Plt Count 156 MPV 12.8 H Immature Gran % (Auto) 0.5 Neut % (Auto) 84.7 H Lymph % (Auto) 7.7 L Love % (Auto) 6.1 Eos % (Auto) 0.8 Baso % (Auto) 0.2 Lymph # (Auto) 0.99 Love # (Auto) 0.8 H Eos # (Auto) 0.1 Baso # (Auto) 0.0 Abs Immat Gran (auto) 0.06 H Absolute Neuts (auto) 10.8 H Absolute Nucleated RBC 0.0 Nucleated RBC % 0.0 POC Capillary Glucose RPR Blood Type Antibody Screen OB - PN A/P Plan day: 1 Plan: routine care Comments: packing pulled Time Spent With Patient Time: Total time spent is greater than 50% in coordination of care (as documented) at patient's floor/unit and/or counseling patient: Time with patient: less than 15 minutes Review of Systems Review of Systems: All systems reviewed & are unremarkable except as noted in HPI and below Exam Const: General: no acute distress Eyes: General: appearance normal, both eyes and all related structures Neck: Neck: supple and no JVD Thyroid: thyroid normal Resp: Effort & Inspection: normal respiratory effort Auscultation: clear to auscultation bilaterally Cardio: Rate: regular rate Rhythm: regular rhythm GI: Inspection: non-distended GI Palp: Yes Soft to palpation, No Tenderness to palpation present (GI) and No Guarding due to palpation present (GI) Auscultation: normal bowel sounds : General: Yes bladder normal to palpation External Female Exam: normal external appearance Speculum Exam - Vagina: normal vaginal discharge and No vaginal bleeding Speculum Exam - Cervix: nontender Bimanual exam- vagina & uterus: bladder normal to palpation and No Cervical tenderness present OB/external & speculum: No vaginal bleeding Skin: General skin exam: no rashes or lesions noted Extrem: General: normal to inspection and no edema Psych: Mental Status: mental status grossly normal Affect: normal affect
--- NOTE | 2020-10-12 07:47 | WPDANLDPN2 ---
Anes-Prog Note L&D Date/Time: 10/12/20 07:47 Comfortable throughout: labor and section Neuraxial method: epidural Epidural/Spinal procedure site: clean & non-tender Neuro status: Neuro function grossly intact. Cardiovascular status: normal Respiratory status: normal Airway patency: baseline Mental status: baseline Post-Op hydration status: normal Vital Signs: Last Vital Signs Temp 98.5 F 10/11/20 23:17 Pulse 78 10/12/20 04:00 Resp 18 10/11/20 23:17 BP 113/60 10/12/20 04:00 Pulse Ox 99 10/11/20 23:17 Pain score (VAS): 5 I/O: Intake & Output 10/11/20 10/11/20 10/12/20 15:59 23:59 07:59 Intake Total 1100 1000 2000 Output Total 2535 235 1650 Balance -1435 765 350 Post-procedural complaints: none Patient feedback: Patient satisfied with anesthetic care. Other findings: epidural catheter removed this a.m., tip intact
--- NOTE | 2020-10-12 07:55 | WPDANLDNPN2 ---
Anes-Prog Note L&D-Neuraxial Date/Time: 10/12/20 07:55 Neuraxial medications: epidural PF morphine Opiod-related complaints: none Patient feedback: Patient satisfied with post-operative pain management.
[2020-10-12] MEDS: HYDROcodone/acetaminophen (*CRX) 10-325 MG TABLET 1 TAB PO (08:28)
[2020-10-12] MEDS: POLYSACCHARIDE IRON COMPLEX 150 MG CAPSULE PO (09:22)
--- NOTE | 2020-10-12 11:00 | PC.NURSE ---
Consult with pt., mother reports she is now pumping as due to transfer. Reviewed breast pump care and usage, pumping schedule, nipple care, and collection and storage of breast milk. Encouraged [id number], breast massage and manual expression to stimulate supply. Pumping log provided and reviewed. Assessed patient for correct flange size, placement and draw. Patient verbalizes and demonstrates understanding of instructions. Discussed large EBL and possible impact on milk supply.
[2020-10-12] MEDS: HYDROcodone/acetaminophen (*CRX) 5-325 MG TABLET 1 TAB PO ×2 (14:27→22:23)
[2020-10-12] MEDS: IBUPROFEN 600 MG TABLET PO ×2 (14:28→22:23)
--- NOTE | 2020-10-12 14:30 | PC.NURSE ---
Pt. to [facility] on 5 hr. pass to see . at side.
--- NOTE | 2020-10-12 19:27 | PC.NURSE ---
Pt returned from pass at 1900
--- NOTE | 2020-10-12 20:24 | PC.NURSE ---
All charting done 10/12/20 after 1800 done was performed by Gerri Liao, RN
--- NOTE | 2020-10-13 07:38 | PM.DS ---
DS: Admitting Diagnosis Admitting Diagnosis Admitting Diagnosis: Thirty-eight week with gestational hypertension / gestational diabetes diet controlled / vaginal bleeding of unknown source DS: Summary Hospital Course Hospital Course: the patient was admitted for induction of labor. She had a large amount of bleeding during the 1st stage of labor and decision was made for low-transverse section. Initially postoperatively there was some heavier bleeding and she was packed. Her hemoglobin remained stable from 10.4-9.4 postop day 1. She was up, voiding without difficulty, passing gas, eating a regular diet, ambulating, and generally without complaints. The baby was transferred due to some apneic episodes. There were no complications to her stay. Her blood pressure remained controlled on labetalol Time Spent with Patient Time attestation: Total time spent providing and/or coordinating discharge services: Exam Const: General: no acute distress Eyes: General: appearance normal, both eyes and all related structures Neck: Neck: supple and no JVD Thyroid: thyroid normal Resp: Effort & Inspection: normal respiratory effort Auscultation: clear to auscultation bilaterally Cardio: Rate: regular rate Rhythm: regular rhythm GI: Inspection: non-distended GI Palp: Yes Soft to palpation, No Tenderness to palpation present (GI) and No Guarding due to palpation present (GI) Auscultation: normal bowel sounds : General: Yes bladder normal to palpation External Female Exam: normal external appearance Speculum Exam - Vagina: normal vaginal discharge and No vaginal bleeding Speculum Exam - Cervix: nontender Bimanual exam- vagina & uterus: bladder normal to palpation and No Cervical tenderness present OB/external & speculum: No vaginal bleeding Skin: General skin exam: no rashes or lesions noted Extrem: General: normal to inspection and no edema Psych: Mental Status: mental status grossly normal Affect: normal affect Discharge Plan Discharge Attending physician on discharge: Elias Huddleston Discharging Clinician: Elias Huddleston Patient Disposition: Home, Self-Care Activity: may shower, no straining and pelvic rest Diet: heart healthy Wound Care Instructions: follow printed instructions Discharge Instructions: Education: Mom and Baby Guide and Preeclampsia Handout Given to: Mother Follow-Up: Call your delivering provider's office for an appointment to be seen in: 1 Week Mom should come to the [facility] for the follow-up appointment. Appointment Date/Time: October 14, 2020 at 8:00 am What to expect at your follow-up visit: Physical Assessment Call [phone] if you are unable to keep your appointment time. BREAST CARE: * Wear a snug supportive bra. * For engorgement discomfort: Breast Feeding: * Apply warm moist washcloths * Express milk as needed to relieve engorgement * Wear loose clothing * For sore nipples: * Identify correct latch-on * Apply warm moist washcloths before and after nursing * Air dry nipples after nursing * May apply Lansinoh cream to nipples ABDOMINAL INCISION: (if applicable) * Allow incision to air dry * Do NOT use lotions for powders on your incision * When showering, allow soap and water to run over the incision, but do not wash incision EPISIOTOMY/PERINEAL CARE: * Until bleeding stops, use your joselyn bottle after urinating * Change your pad frequently throughout the day * No tub baths until seen by your physician - You may shower ACTIVITY: * Rest as much as possible. * Do not exercise or lift anything heavier than your baby (such as laundry or other children.) * Avoid stairs or driving as much as possible. * Do not put anything into the vagina. No douching, tampons, or sexual activity until seen by physician. NOTIFY PHYSICIAN IF YOU HAVE ANY QUESTIONS O
[2020-10-13 07:40] VITALS: BP 131/72; PULSE 86; RESP 16; TEMP 36.9; O2SAT 99
--- NOTE | 2020-10-13 07:40 | PM.OBPNVD ---
OB - PN: Subj Subjective Date/time seen: 10/13/20 07:40 Patient comments: no complaints and pain well controlled OB - PN: Obj Data Labs CBC & Chem 7: 10/12/20 05:01 10/11/20 06:25 OB - PN A/P Plan day: 2 Plan: routine care, discharge home and follow up 6 weeks (2 weeks) Time Spent With Patient Time: Total time spent is greater than 50% in coordination of care (as documented) at patient's floor/unit and/or counseling patient: Time with patient: less than 15 minutes Review of Systems Review of Systems: All systems reviewed & are unremarkable except as noted in HPI and below Exam Const: General: no acute distress Eyes: General: appearance normal, both eyes and all related structures Neck: Neck: supple and no JVD Thyroid: thyroid normal Resp: Effort & Inspection: normal respiratory effort Auscultation: clear to auscultation bilaterally Cardio: Rate: regular rate Rhythm: regular rhythm GI: Inspection: non-distended GI Palp: Yes Soft to palpation, No Tenderness to palpation present (GI) and No Guarding due to palpation present (GI) Auscultation: normal bowel sounds Skin: General skin exam: no rashes or lesions noted Extrem: General: normal to inspection and no edema Psych: Mental Status: mental status grossly normal Affect: normal affect
[2020-10-13] MEDS: POLYSACCHARIDE IRON COMPLEX 150 MG CAPSULE PO (07:51)
[2020-10-13] MEDS: HYDROcodone/acetaminophen (*CRX) 5-325 MG TABLET 1 TAB PO (07:51)
[2020-10-13] MEDS: IBUPROFEN 600 MG TABLET PO (07:51)
[2020-10-13] MEDS: DOCUSATE SODIUM 100 MG CAPSULE PO (07:51)
--- NOTE | 2020-10-13 08:00 | PC.NURSE ---
Patient instructed on viewing the discharge video Mother & Baby Care, The First Two Weeks . Patient was given the opportunity and encouraged to ask questions. Patient verbalized understanding of information shared and has been given the mother/baby guide for home reference.
--- NOTE | 2020-10-13 09:18 | PC.NURSE ---
Consulted with patient, infant is admitted at another hospital. Mom is pumping breastmilk for infant. Mom denies questions about pumping, states she has done it with her other children. Mom states she is pumping every 2-3 hours. Encouraged [id number] when possible, breast massage and manual expression to stimulate supply. Mom denies any nipple tenderness. Patient verbalizes and demonstrates understanding of instructions. Reviewed community resources on the [facility] and in the Mom/Baby guide. Information on outpatient services provided. Mother has no further questions at this time.
[2020-10-14 07:56] VITALS: BP 136/64; PULSE 91; RESP 20; TEMP 36.8; O2SAT 100
== END 2020-10-13 09:23 | disposition home or self-care (01) | DRG 788 ==
LOC: ANHLDR 05:56 → ANHOB2 21:42
PROVIDERS: Admitting Provider Obstetrics & Gynecology; PCP Family Medicine; Visit Provider Obstetrics & Gynecology
PROC: 10D00Z1 Extraction of Products of Conception, Low, Open Approach (ICD-10-PCS; CPT 59514; principal; 2020-10-11 13:45)
DX: O24.420 Gestational diabetes mellitus in childbirth, diet controlled (principal); O76 Abnormality in fetal heart rate and rhythm complicating labor and delivery; O13.4 Gestational [pregnancy-induced] hypertension without significant proteinuria, complicating childbirth; O67.9 Intrapartum hemorrhage, unspecified; Z3A.38 38 weeks gestation of pregnancy; Z37.0 Single live birth
CPT/HCPCS: 36415; 80053; 82948; 84550; 85014; 85018; 85025; 86592; 86850; 86900; 86901; A9270; J0131; J0690; J1200; J1885; J2210; J2274; J2405; J2590; J2795; J3010; J7120

== ENCOUNTER 2021-09-01 09:27 | Emergency (ER) | payer BC, SELFPAY ==
[2021-09-01 09:28] VITALS: BP 171/117; PULSE 77; RESP 18; TEMP 36.5; O2SAT 98
[2021-09-01 10:03] VITALS: BP 158/108; PULSE 78; RESP 18; O2SAT 99
[2021-09-01 10:51] VITALS: BP 131/71; BP 134/92; PULSE 69; PULSE 70
[2021-09-01 10:52] VITALS: BP 146/92; PULSE 89
[2021-09-01 11:00] LABS: Basophils Percent Auto 0.3 % (0.2-1.2); Eosinophils Absolute Auto 0.2 K/mm3 (0-0.3); Hematocrit 41.4 % (37.0-47.0); Hemoglobin 14.1 g/dL (12.0-15.0); Immature Granulocyte Absolute 0.09 K/mm3 (0.00-0.031); Lymphocytes Percent Auto 23.6 % (18.3-44.2); Mean Corpuscular HGB Conc 34.1 g/dl (32-36); Mean Corpuscular Hemoglobin 30.7 pg (26-34); Mean Corpuscular Volume 90.2 fl (80-100); Monocytes Absolute Auto 0.7 K/mm3 (0.1-0.6); Monocytes Percent Auto 8.3 % (2.6-8.5); Neutrophils Absolute Auto 5.8 K/mm3 (1.3-6.7); Neutrophils Percent Auto 64.8 % (45.5-73.1); Platelet Count Result 214 k/mm3 (150-375); Red Blood Count 4.59 M/mm3 (4.2-5.4); Red Cell Distribution Width 13.1 % (11.5-14.5); White Blood Count 8.9 K/mm3 (4.5-10.0)
[2021-09-01 11:29] LABS: Beta HCG Quantitative < 2.39 mIU/ML
--- NOTE | 2021-09-01 11:49 | PC.NURSE ---
Pelvic exam with PAYROLL MACHINE OPERATOR Winter with this RN in attendance. Pt tolerated procedure well.
--- NOTE | 2021-09-01 11:50 | ED.FEMALEGU ---
HPI - Female Genitourinary General Chief complaint: Vaginal Bleeding Stated complaint: vaginal bleeding Time Seen by Provider: 09/01/21 10:18 Source: patient Mode of arrival: ambulatory History of Present Illness HPI Narrative: 36-year-old female presents today with complaints of heavy menstrual cycle. States her menstrual started goal started on Saturday was candlelight but then got heavy in the middle the night last night. Patient states she has been through 5 super tampons since about 530 this morning. Patient denies any lightheadedness, dizziness, chest pain, or shortness of breath. Patient does have a history of heavy menstrual cycles that she has had D&Cs for in the past. Patient has a baby that is 10 months old and this is her first period since then. Patient thinks bleeding has decreased since she has been here but she has been laying in bed. Related Data Home Medications Medication Instructions Recorded Confirmed latanoprost 0.005 % eye drops 1 drop EACH EYE DAILY 10/05/19 06/29/21 timolol 0.5 % eye drops 1 drop EACH EYE Q12H 10/05/19 06/29/21 1 tab-cap PO DAILY 07/16/20 06/29/21 latanoprostene bunod [Vyzulta] drp 09/01/21 Allergies Allergy/AdvReac Type Severity Reaction Status Date / Time No Known Allergies Allergy Verified 09/01/21 10:10 Review of Systems Review of Systems: CONSTITUTIONAL: Denies fever, chills, or sweats. EYES: Denies visual changes, redness, or discharge. ENT: Denies rhinorrhea, congestion, sore throat, or otalgia. CARDIOVASCULAR: Denies chest pain, palpitations, or edema. RESPIRATORY: Denies cough or dyspnea. GASTROINTESTINAL: Denies abdominal pain, nausea, vomiting, or diarrhea. GENITOURINARY: Heavy menstrual cycle. Saturated 5 super tampons this morning since 530 prior to arrival. Denies dysuria or hematuria. SKIN: Denies rash or itching. MUSCULOSKELETAL: Denies back pain, joint pain, or myalgia. NEUROLOGIC: Denies headache, numbness, dizziness, or weakness. PSYCHIATRIC: Denies anxiety or depression. [facility] Past Medical History Medical History Eczema Glaucoma Obesity PCOS (polycystic ovarian syndrome) Surgical History Surgical History History of section S/P laser trabeculoplasty of eye Family History Family History Grandparent Cerebrovascular accident Diabetes mellitus Malignant neoplasm of prostate Family history of coronary artery disease Mother Family history of glaucoma Father Hypertension Social History Social History Smoking status: Never smoker Second hand tobacco smoke exposure: No Alcohol intake: current Drinks per week: 1 Substance use: never Substance use type: does not use Gender identity (if verbalized by the patient): Female Spiritual care concerns: No Exam Narrative: GENERAL: Well-appearing, well-nourished, and in no acute distress. HEAD: Normocephalic, atraumatic. EYES: PERRLA and EOMI. ENT: Nares clear, no rhinorrhea or epistaxis. Mucous membranes moist. Oropharynx without tonsillar hypertrophy exudate or other lesions. Bilateral TMs pearly de león nonbulging NECK: Supple. No adenopathy or masses. No carotid bruits or JVD CHEST: Clear to auscultation. No respiratory distress. No wheezes rales or rhonchi HEART: Regular rate and rhythm. No murmur heard. Normal peripheral pulses. ABDOMEN: Soft, nontender, nondistended, normal active bowel sounds. EXTREMITIES: Normal range of motion. No edema. SKIN: Warm, dry, no rash. NEURO: No focal deficits. Alert and oriented x3. PSYCH: Normal mood and affect. : Speculum Exam - Vagina: normal appearance of the vagina and vaginal bleeding (Moderate amount of vaginal bleeding in canal, no clots noted.) Speculum Exam - Cervix: normal appearance of the cervi
== END 2021-09-01 12:38 | disposition home or self-care (01) ==
PROVIDERS: Emergency Medicine; Emergency Provider Nurse Practitioner Family; PCP Family Medicine
DX: N93.9 Abnormal uterine and vaginal bleeding, unspecified (principal); H40.9 Unspecified glaucoma; E28.2 Polycystic ovarian syndrome; E66.9 Obesity, unspecified; Z68.34 Body mass index [BMI] 34.0-34.9, adult
CPT/HCPCS: 36415; 84702; 85025; 99284

== ENCOUNTER 2021-09-15 11:41 | Outpatient (CLI) | payer BC, SELFPAY | END 2021-09-15 11:42 | disposition home or self-care (01) | PROVIDERS: PCP Family Medicine; Visit Provider Obstetrics & Gynecology | DX: N93.9 Abnormal uterine and vaginal bleeding, unspecified (principal) | CPT/HCPCS: 36415; 86850; 86900; 86901 ==

== ENCOUNTER 2021-09-22 01:55 | Day surgery (SDC) | payer BC, SELFPAY ==
[2021-09-14 15:44] VITALS: BMI 34.7
--- NOTE | 2021-09-15 11:27 | PC.NURSE ---
Addendum entered by José Rowe RN 09/15/21 11:30: May have 20oz of clear liquid up until 0830 on day of surgery. Original Note: Report to the Outpatient Waiting Room, entrance under the green pavilion located off [facility], at time 0930on date 09/22/21. OR Time: _1130_. - You and your visitor will be asked a series of questions to screen for COVID 19 for your protection. - Only one visitor is allowed at this time. - The patient visitor is requested to leave or wait in car when not with patient. - A mask is required within the hospital. Patients may have clear liquids (water, carbonated beverages, clear teas, apple juice) until 3 hours prior to surgery with a maximum of 20 ounces. - No food from midnight until time of surgery - Infants may have breast milk until 4 hours before surgery, infant formula 6 hours prior to surgery. - Children will be allowed to drink immediately following surgery. If applicable, please bring a bottle or sippy cup to assist with drinking. Juice, water, soda, and popsicles are readily available. For infants on formula, please bring formula the day of surgery. Pacifiers are allowed. Take the following medications with a SIP of water the morning of surgery: _timolol_ Medications to discontinue per physician calcium, pre-natal Date to take last dose09/19/21 Please no make-up, nail uruguayan, hairspray, perfume, deodorant, or body powder the day of surgery. No jewelry (including any body piercings) or valuables the day of surgery, leave them at home. Please take a shower or bath the night before, or the morning of, surgery with an antibacterial soap. Wear comfortable, loose fitting clothing. Children are encouraged to wear pajamas. - Jewelry must be removed prior to entering the operating room. Rings and piercings that are not removed may be cut off. - The hospital will not accept responsibility for valuables. - Please leave all valuables, including medications, at home the day of surgery. If you are going home after surgery, a licensed regional truck driver must drive you home. - NO public transportation without another adult. - We recommend that an adult stay with you for 24 hours following discharge. - We also recommend that you do not drive, make important decision, drink alcoholic beverages, or take any drugs that were not prescribed by your health care provider for at least 24 hours after your discharge time. For Pediatric surgeries, we recommend two adults accompany the child home (only one inside the building at this time). Follow any additional instructions given to you from your surgeon. If you or anyone in your household have experienced Covid symptoms in the past week, please notify your surgeon or the nurse liaison at the phone number below for possible testing. Telephone instructions given to Blessing Evans and asked if any additional questions and then verbalized understanding. Patient advised to call surgeon office or pre surgery nurse liaison [phone] if any additional questions.
--- NOTE | 2021-09-20 07:55 | P.HP_ITS ---
H&P: HPI History of Present Illness Date/Time: 09/20/21 07:55 Chief Complaint: Pain and bleeding refractory to medical therapy Narrative: This is a 36-year-old female with a long history of vaginal bleeding. She has undergone multiple D and C's before the past. She has been using vasectomy for D and C's and hormone manipulation of been unhelpful that she continues to bleed heavily and irregularly. Risks and benefits reviewed including but not exclusive of , aspiration pneumonia, bleeding, transfusion, perforation injury to bowel, bladder, ureters, or other internal organs with need for laparo rupesh. She received the ACOG handout entitled hysterectomy as well as a DVT and out. She had all questions answered. She asked to proceed PMFSH Past Medical History Medical History Eczema Glaucoma Obesity PCOS (polycystic ovarian syndrome) Surgical History Surgical History History of section S/P laser trabeculoplasty of eye Family History Family History Grandparent Cerebrovascular accident Diabetes mellitus Malignant neoplasm of prostate Family history of coronary artery disease Mother Family history of glaucoma Father Hypertension Social History Social History Smoking status: Never smoker Second hand tobacco smoke exposure: No Alcohol intake: never Drinks per week: 1 Substance use: never Substance use type: does not use Gender identity (if verbalized by the patient): Female Spiritual care concerns: No Meds Home Medications and Allergies Home Medications Medication Instructions Recorded Confirmed Type timolol 0.5 % eye drops 1 drop ophthalmic (eye) Q12H 10/05/19 09/14/21 History 1 tab-cap PO DAILY 07/16/20 09/14/21 History latanoprostene bunod 0.024 % eye 1 drp DAILY 09/01/21 09/14/21 History drops (Vyzulta) medroxyprogesterone 10 mg tablet 10 mg PO DAILY #10 tabs 09/01/21 09/14/21 Rx (Provera) calcium 100 mg capsule 100 mg PO DAILY 09/14/21 09/14/21 History Allergies Allergy/AdvReac Type Severity Reaction Status Date / Time No Known Allergies Allergy Verified 09/01/21 10:10 Exam : External Female Exam: normal external appearance Speculum Exam - Vagina: normal appearance of the vagina and vaginal bleeding Speculum Exam - Cervix: Cervical os closed Bimanual exam- vagina & uterus: enlarged Bimanual Exam- Adnexa, other: normal adnexae Assessment and Plan Assessment and plan (1) Enlarged uterus: Code(s): N85.2 - Hypertrophy of uterus Status: Acute (2) Vaginal bleeding: Code(s): N93.9 - Abnormal uterine and vaginal bleeding, unspecified Status: Acute Plan Robotic total vaginal hysterectomy and bilateral salpingectomy
--- NOTE | 2021-09-21 12:28 | P.PNAN_ITS ---
Anes - Initial Pre Proc Eval Procedure: Operation Date: 09/22/21 11:30 Proposed Procedures p Robotic Assisted Total Vaginal Hysterectomy with Bilateral Salpingectomy - Elias Russell MD Date/Time: 09/21/21 12:28 Surgeon: Elias Russell MD Pre Op Diagnosis: Enlarged Uterus, Excessive Bleed, Fibroids Patient Data Age: 36 Gender: F Height: 1.83 m Weight: 116 kg Allergies Allergy/AdvReac Type Severity Reaction Status Date / Time No Known Allergies Allergy Verified 09/22/21 09:44 Home Medications Medication Instructions Recorded Confirmed Type timolol 0.5 % eye drops 1 drop ophthalmic (eye) Q12H 10/05/19 09/22/21 History 1 tab-cap PO DAILY 07/16/20 09/22/21 History latanoprostene bunod 0.024 % eye 1 drp HS 09/01/21 09/22/21 History drops (Vyzulta) medroxyprogesterone 10 mg tablet 10 mg PO DAILY #10 tabs 09/01/21 09/22/21 Rx (Provera) calcium 100 mg capsule 100 mg PO DAILY 09/14/21 09/22/21 History hydrocodone 5 mg-acetaminophen 325 1 tablet PO Q4H PRN pain #30 tabs 09/22/21 Rx mg tablet Patient hx anesthesia problems: none Family hx anesthesia problems: none Results Review: All pre-operative results and documents have been reviewed as part of the pre- operative evaluation. [facility] Past Medical History Medical History (Updated 09/22/21 @ 07:17 by Elias Russell MD) Abnormal uterine bleeding Eczema Glaucoma HTN (hypertension) Obesity PCOS (polycystic ovarian syndrome) Surgical History Surgical History History of section S/P laser trabeculoplasty of eye Family History Family History Grandparent Cerebrovascular accident Diabetes mellitus Malignant neoplasm of prostate Family history of coronary artery disease Mother Family history of glaucoma Father Hypertension Social History Social History Smoking status: Never smoker Second hand tobacco smoke exposure: No Alcohol intake: never Drinks per week: 1 Substance use: never Substance use type: does not use Living arrangements: with family Gender identity (if verbalized by the patient): Female Spiritual care concerns: No Anes - Eval Final PreProcedure Day of Procedure 09/21/21 12:28 Patient weight: obese Heart: regular rate and rhythm Lungs: clear to auscultation Airway: Mallampati scale class II Neurological: alert and oriented Last oral intake: 2 hours (clears) ASA classification: II Anesthetic plan: proceed Anesthesia type and monitoring: general ETT and standard monitoring Results Review: All pre-operative results and documents have been reviewed as part of the pre- operative evaluation. Informed Consent: The patient's anesthetic plan and its attendant risks and benefits were discussed with the patient/family/POA. Questions were solicited and answers provided to the satisfaction of the patient/family/POA.
[2021-09-22] VITALS (12 sets, daily range): BP systolic 111–148; BP diastolic 64–91; PULSE 51–96; RESP 12–18; TEMP 36.4–37.3; O2SAT 94–99
--- NOTE | 2021-09-22 07:16 | WPDHPUPDATE1 ---
History and Physical Update Update Date/Time: 09/22/21 07:16 History and Physical has been reviewed, including an updated exam of the patient. There are NO changes in the patient's condition. Risks, benefits, and alternatives have been discussed and questions answered. Patient agrees to proceed with procedure.
[2021-09-22] MEDS: ACETAMINOPHEN 500 MG TABLET 1000 MG PO (09:49)
[2021-09-22] MEDS: LACTATED RINGERS 1,000 ML 30 ML IV CONT ×2 (10:31→12:25)
[2021-09-22] MEDS: KETOROLAC 15 MG/ML VIAL (*BKC) IV PUSH (10:31)
[2021-09-22] MEDS: ceFAZolin 2 GM/D5W 50 ML 2 GM/50 ML BAG IVPB (10:38)
--- NOTE | 2021-09-22 12:11 | W.PM.PROC2 ---
Procedure Note - Detailed Date of Procedure 09/22/21 Pre-op Diagnosis Enlarged Uterus, Excessive Bleed, Fibroids Post-op Diagnosis Same Procedure Performed Robotic total vaginal hysterectomy and bilateral salpingectomy with lysis of adhesions Surgeon Elias Russell MD Anesthesia General Indications This 36-year-old multiparous status post multiple C-sections with bleeding refractory to medical therapy Findings Markedly enlarged uterus. Adhesions from the omentum to the anterior abdominal wall. Adhesions near the bladder normal-appearing ovaries and tubes Description of Procedure The patient was prepped draped sterile fashion placed in dorsal position. Under excellent general trach anesthesia weighted speculum placed in posterior fornix vagina. Anterior lip of the cervix grasped with a single-tooth tenaculum. The uterus sounded to 10cm. Serial dilatation with fragmented dilators performed followed by passes the 10. EMILIE and the 3. Cold cup. Next the 16 [place] catheter was placed in the weighted speculum was removed as was the single-tooth tenaculum. Gloves were changed A supraumbilical incision made the Veress needle passed in the abdomen. Abdomen filled with CO2 gas [id number]. The 8mm trocar advanced in the abdomen. Downside visualized no injury seen. Gas reattached patient placed in Trendelenburg and right left lateral quadrant incisions made. 8mm trocars were advanced under direct visualization of the abdomen assuring no injury. Right upper quadrant incision made the 8mm trocar advanced under direct visualization again assuring no injury. The robot was docked. Attention was turned to the console. The left round ligament was grasped, burned, cut. The bladder was noted be writing relatively high on the cervix to almost the uterine body. Using serial sharp dissection the bladder was dissected away and retracted laterally and caudally from the cervix and uterus to the opposite round ligament which was clamped, burned, cut. Next the fallopian tube was sharply dissected from the ovarian complex and left attached to its uterine origin. Next the right fallopian tube was sharply dissected away from the ovarian complex and left connected to the uterine origin. Next the left utero-ovarian ligament was skeletonized to conserve the left ovary. This was clamped, burned, cut. This was brought to the level of previously cut round ligament. In like fashion conserving the right ovary utero-ovarian ligament was clamped, burned, cut and brought to level of previously cut round ligament. Next cardinal broad ligaments were serially skeletonized clamping burning and cutting until the uterine vessels could be seen on the left. These were individually clamped, burned, cut. In like fashion the cardinal broad ligaments on the right were serially skeletonized clamping burning cutting and hugging the cervix and uterus until the uterine vessels on the right could be seen. These were individually clamped, burned, cut. Blanching the uterus was noted and a colpotomy incision made. Cervix and uterus removed through the vagina. The vagina was then closed with continuous running 0V lock from lateral edge to lateral edge back to the midline. Hemostasis was assured and these were then sprinkled with [place] term. The robot was undocked. The gas removed from the abdomen. The trocars removed and the incisions closed with 4 Monocryl and glue. The patient was awakened. All sponge, needle, instrument counts were correct. There were no immediate complications noted Estimated Blood Loss 50 Drains No Packing No Pathology Yes Complications No immediate complications Condition Stable Disposition PACU
[2021-09-22] MEDS: fentaNYL CITRATE INJ (*CRX) 100 MCG/2 ML VIAL 25 MCG IV PUSH (13:14)
[2021-09-22] MEDS: DOCUSATE SODIUM 100 MG CAPSULE PO (15:55)
[2021-09-22] MEDS: IBUPROFEN 600 MG TABLET PO ×2 (15:55→22:50)
[2021-09-22] MEDS: SIMETHICONE 80 MG TAB.CHEW PO ×2 (15:55→22:50)
[2021-09-23 04:00] VITALS: BP 118/67; PULSE 81; RESP 16; TEMP 36.9
[2021-09-23] MEDS: IBUPROFEN 600 MG TABLET PO ×2 (04:48→10:15)
[2021-09-23 05:13] LABS: Basophils Percent Auto 0.1 % (0.2-1.2); Eosinophils Percent Auto 0.1 % (0-4.4); Hematocrit 36.6 % (37.0-47.0); Hemoglobin 12.2 g/dL (12.0-15.0); Immature Granulocyte Absolute 0.07 K/mm3 (0.00-0.031); Immature Granulocyte Percent A 0.5 % (0-0.5); Lymphocytes Absolute Auto 1.46 K/mm3 (0.9-3.2); Lymphocytes Percent Auto 9.5 % (18.3-44.2); Mean Corpuscular HGB Conc 33.3 g/dl (32-36); Mean Corpuscular Hemoglobin 29.7 pg (26-34); Mean Corpuscular Volume 89.1 fl (80-100); Mean Platelet Volume 11.7 fl (7.4-10.4); Monocytes Percent Auto 6.5 % (2.6-8.5); Neutrophils Absolute Auto 12.9 K/mm3 (1.3-6.7); Neutrophils Percent Auto 83.3 % (45.5-73.1); Platelet Count Result 278 k/mm3 (150-375); Red Blood Count 4.11 M/mm3 (4.2-5.4); Red Cell Distribution Width 12.7 % (11.5-14.5); White Blood Count 15.4 K/mm3 (4.5-10.0)
--- NOTE | 2021-09-23 07:38 | PM.GYNPNOP ---
ORDNANCE MECHANIC - A/P Assessment and plan (1) Abnormal uterine bleeding: Code(s): N93.9 - Abnormal uterine and vaginal bleeding, unspecified Status: Acute Assessment and Plan: A: POD#1 s/p robotic assisted TVHBS, doing well. P: Home to f/u 2 weeks. (2) Enlarged uterus: Code(s): N85.2 - Hypertrophy of uterus Status: Acute Postoperative Procedures: Procedures Operation Date: 09/22/21 11:30 Actual Procedure Side Surgeon p Robotic Assisted Total Vaginal Hysterectomy with Bilateral Salpingectomy Bilateral Elias Russell MD Time Spent With Patient Time with patient: less than 15 minutes ORDNANCE MECHANIC- PN:Subj Post-Op Subjective Date/time seen: 09/23/21 07:38 Interval history: Pain OK. Tolerating diet. Voiding. Would like to go home. Exam Narrative: AVSS I/O OK ABD soft, nontender. Incisions c/d/i. EXT nontender ORDNANCE MECHANIC - PN: Obj Data Vital Signs Vital Signs: Vital Signs - 24 hr 09/22/21 09:45 09/22/21 12:25 09/22/21 12:40 Temperature 36.4 C L 36.6 C Pulse Rate 78 51 L 56 L Respiratory Rate 16 13 12 Blood Pressure 136/80 123/66 127/78 Pulse Oximetry 99 98 99 Oxygen Delivery Room Air Simple Face Mask Simple Face Mask Oxygen Flow Rate 10 6 09/22/21 12:55 09/22/21 13:14 09/22/21 13:29 Temperature Pulse Rate 71 57 L 56 L Respiratory Rate 14 14 12 Blood Pressure 138/68 138/74 138/75 Pulse Oximetry 98 95 94 Oxygen Delivery Room Air Room Air Room Air Oxygen Flow Rate 09/22/21 13:44 09/22/21 13:59 09/22/21 14:20 Temperature 36.8 C Pulse Rate 58 L 67 65 Respiratory Rate 12 15 18 Blood Pressure 148/79 H 143/91 H 119/76 Pulse Oximetry 98 99 99 Oxygen Delivery Room Air Room Air Oxygen Flow Rate 09/22/21 14:15 09/22/21 19:41 09/22/21 19:20 Temperature 36.8 C Pulse Rate 65 91 Respiratory Rate 18 18 Blood Pressure 124/70 Pulse Oximetry 99 95 Oxygen Delivery Room Air Room Air Oxygen Flow Rate 09/22/21 22:50 09/22/21 22:50 09/23/21 04:00 Temperature 37.3 C 36.9 C Pulse Rate 96 81 Respiratory Rate 16 16 Blood Pressure 111/64 118/67 Pulse Oximetry Oxygen Delivery Room Air Oxygen Flow Rate 09/23/21 04:00 Temperature Pulse Rate Respiratory Rate Blood Pressure Pulse Oximetry Oxygen Delivery Room Air Oxygen Flow Rate Intake/Output Intake/Output: Intake & Output 09/20/21 09/21/21 09/22/21 09/23/21 23:59 23:59 23:59 23:59 Intake Total 1700 1500 Output Total 800 1400 Balance 900 100 Meds/Results Medications: Active Medications Generic Name Dose Route Start Last Admin Trade Name Freq PRN Reason Stop Dose Admin Hydrocodone Bitart/Acetaminophen 1 tab 09/22/21 14:07 Hydrocodone/Acetaminophen (*Crx) 5-325 Mg Tablet PO Q3H PRN Pain Rated 5 or Less Hydrocodone Bitart/Acetaminophen 1 tab 09/22/21 14:07 Hydrocodone/Acetaminophen (*Crx) 10-325 Mg Tablet PO Q3H PRN Pain Rated 6 or Greater Docusate Sodium 100 mg 09/22/21 17:00 09/22/21 15:55 Docusate Sodium 100 Mg Capsule PO 100 mg BID FARIDEH Administration Enoxaparin Sodium 40 mg 09/23/21 09:00 Enoxaparin 40 Mg/0.4 Ml Syringe SUB-Q DAILY FARIDEH Ibuprofen 600 mg 09/22/21 14:07 09/23/21 04:48 Ibuprofen 600 Mg Tablet PO 600 mg Q6H PRN Administration Cramping Ketorolac Tromethamine 30 mg 09/22/21 14:07 Ketorolac 30 Mg/Ml Vial (*Bkc) IV PUSH 09/27/21 14:06 Q6H PRN Pain Rated 4-6 Naloxone HCl 0.1 mg 09/22/21 14:07 Naloxone Hcl 0.4 Mg/Ml Vial IV PUSH Q2M PRN Respiratory rate less than 10 Ondansetron HCl 4 mg 09/22/21 14:07 Ondansetron Inj 4 Mg/2 Ml Vial IV PUSH Q6H PRN Nausea And Vomiting Simethicone 80 mg 09/22/21 14:07 09/22/21 22:50 Simethicone 80 Mg Tab.Chew PO 80 mg Q2H PRN Administration Gas Labs CBC & Chem 7: 09/23/21 03:53 Labs: Laboratory Results - last 24 hr 09/23/21 03:53 WBC 15
--- NOTE | 2021-09-23 08:00 | PC.NURSE ---
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 PT and spouse both received such instructions and no barriers to learning identified at this time. PT and spouse both received instructions this shift through one to one discussion and demonstrations. PT verbalized understanding of such care.
[2021-09-23 10:00] VITALS: BP 138/71; PULSE 79; RESP 18; TEMP 37.2; O2SAT 99
[2021-09-23] MEDS: SIMETHICONE 80 MG TAB.CHEW PO (10:09)
[2021-09-23] MEDS: DOCUSATE SODIUM 100 MG CAPSULE PO (10:09)
[2021-09-23] MEDS: ENOXAPARIN 40 MG/0.4 ML SYRINGE SUB-Q (10:09)
[2021-09-23] MEDS: ACETAMINOPHEN 500 MG TABLET 1000 MG (10:10)
--- NOTE | 2021-09-23 10:21 | WPDANESPN ---
Anes - Prog Note Post-Op Date/Time: 09/23/21 10:21 Vital Signs: Last Vital Signs Temp 36.9 C 09/23/21 04:00 Pulse 81 09/23/21 04:00 Resp 16 09/23/21 04:00 BP 118/67 09/23/21 04:00 Pulse Ox 95 09/22/21 19:41 O2 Del Method Room Air 09/23/21 04:00 O2 Flow Rate 6 09/22/21 12:40 Pain Score (VAS): 05/25 I/O: Intake & Output 09/22/21 09/23/21 09/23/21 23:59 07:59 15:59 Intake Total 700 1500 Output Total 500 1400 Balance 200 100 Laboratory Tests 09/23/21 03:53 09/23/21 03:53 WBC 15.4 H RBC 4.11 L Hgb 12.2 Hct 36.6 L MCV 89.1 MCH 29.7 MCHC 33.3 RDW 12.7 Plt Count 278 MPV 11.7 H Immature Gran % (Auto) 0.5 Neut % (Auto) 83.3 H Lymph % (Auto) 9.5 L [place] % (Auto) 6.5 Eos % (Auto) 0.1 Baso % (Auto) 0.1 L Lymph # (Auto) 1.46 [place] # (Auto) 1.0 H Eos # (Auto) 0.0 Baso # (Auto) 0.0 Abs Immat Gran (auto) 0.07 H Absolute Neuts (auto) 12.9 H Absolute Nucleated RBC 0.0 Nucleated RBC % 0.0 Patient Feedback: Patient satisfied with anesthetic care.
[2021-09-23 10:30] VITALS: PULSE 79; RESP 18; O2SAT 99
--- NOTE | 2021-09-23 10:30 | PC.NURSE ---
pt received discharge instructions per protocol and verbazlied understanding of such care.
--- NOTE | 2021-09-23 10:40 | PC.NURSE ---
Abdominal binder applied to pt abdomen and PT walked off floor ambulatory with husbdand to waiting car. Follow up appts conifrmed
== END 2021-09-23 10:40 | disposition home or self-care (01) ==
LOC: ANHSURGERY 09:40 → ANHOB2 14:09
PROVIDERS: PCP Family Medicine; Visit Provider Obstetrics & Gynecology
PROC: (CPT 58552; principal; 2021-09-22 11:30)
DX: N93.9 Abnormal uterine and vaginal bleeding, unspecified (principal); N73.6 Female pelvic peritoneal adhesions (postinfective); N85.2 Hypertrophy of uterus; N83.8 Other noninflammatory disorders of ovary, fallopian tube and broad ligament; N85.8 Other specified noninflammatory disorders of uterus; L30.9 Dermatitis, unspecified; E28.2 Polycystic ovarian syndrome; I10 Essential (primary) hypertension; E66.9 Obesity, unspecified; Z68.34 Body mass index [BMI] 34.0-34.9, adult
CPT/HCPCS: 58552; S2900; 36415; 85025; 88307; 99199; A9270; J0690; J1100; J1170; J1650; J1885; J2250; J2405; J2704; J3010; J7030; J7120

== ENCOUNTER → 2021-12-06 16:32 | Outpatient (CLI) | payer BC, SELFPAY ==
--- NOTE | ~2021-12-06 | XR_ITS ---
EXAM: XR lumbar spine min 4V DATE: 12/06/2021 16:51 HISTORY: M54.50 - Low back pain, unspecified . COMPARISON: None available. FINDINGS: 5 nonrib-bearing lumbar-type vertebral bodies. Pedicles intact. Normal vertebral body alig nment. Vertebral body heights preserved. Disc spaces maintained. Normal facets and posterior elements . No fracture or dislocation. IMPRESSION: Normal lumbar spine radiograph findings. Reviewed, dictated and finalized at location K.
== END ==
PROVIDERS: PCP Family Medicine; Visit Provider Physician Assistant
DX: M54.50 Low back pain, unspecified (principal)
CPT/HCPCS: 72110

== ENCOUNTER 2023-07-10 09:15 | Outpatient (CLI) | payer BC, SELFPAY ==
--- NOTE | 2023-07-17 12:57 | WPDHOMESLEEP ---
Sleep Study - Home Unattended Date of Study: 07/10/23 Ordering Provider: FAHAD Hutchinson-C Interpreting Provider: Shadia Sellers, DO Home Sleep Study Type: Watch PAT Height: 1.8 m Weight: 123.377 kg Body Mass Index: 37.9 Neck Circumference (inches): 17.5 [place]: 16 Reason for Sleep Study Snoring, daytime hypersomnia, falling asleep while driving Sleep History The patient is a 7 with anxiety, hypertension, headaches, glaucoma PCOS and obesity that had a sleep study by her primary care for evaluation of sleep apnea. She occasionally awakens sleep short of breath. She rarely awakens at night with belching or. She constantly snores and it is frequently loud that others complain. She constantly has trouble sleeping when she has a cold. She rarely wakes up gasping for air throughout the night. She constantly has breathing problems at night observed by herself or others. She occasionally sweats excessively at night. She rarely has heart palpitations or irregular heartbeats during the night. She frequently falls asleep during the day and frequently falls asleep while driving. She denies cataplexy. She occasionally has trouble at school or work due to sleepiness. She rarely feels unable to move while waking up or asleep. She rarely experiences vivid dreamlike scenes upon awakening or falling asleep. She rarely feels afraid of going to sleep. She occasionally has nightmares occasionally remembers her dreams. She occasionally has thoughts racing through her mind. She occasionally feels sad, depressed and anxious. She rarely has muscular tension. She denies noticing parts of her body jerk. She denies kicking during the night. She having crawling and aching feelings in her legs but rarely has leg pain during the night she denies grinding her teeth during sleep and denies awakening with morning jaw pain. She denies being bothered by pain during the day and denies being awakened by pain during the day. She occasionally wakes up stiff in morning. She occasionally wakes up with sore or achy muscles. She occasionally wakes up pain in the neck, spine and other joints. She goes to bed between 10-11 p.m. of both weekdays and weekends. It takes her 15-20 minutes to fall asleep. She wakes up 3 times times throughout the night to urinate and it takes her less of 5 minutes to fall back asleep. She has occasionally fallen asleep on the toilet. She wakes up at 6:00 a.m. on weekdays and between 730-9 a.m. on the weekends. She typically gets 6-7 hours of sleep per night. She will stay in bed for 5 minutes on weekdays and at 230 minutes on weekends after waking up in the morning. She currently lives with her and 3 children. She denies consuming any caffeinated beverages within 2 hours of bedtime. She denies engaging in physical exercise before bedtime. She will read before falling asleep. She will take naps in the afternoon or the evening but they are not refreshing. She consumes 1-3 caffeinated beverages per day. She denies tobacco, alcohol and recreational drug use. PMFSH Past Medical History Medical History Abnormal uterine bleeding Eczema Glaucoma HTN (hypertension) Obesity PCOS (polycystic ovarian syndrome) Surgical History Surgical History H/O vaginal hysterectomy History of section S/P laser trabeculoplasty of eye Family History Family History Grandparent Cerebrovascular accident Diabetes mellitus Malignant neoplasm of prostate Family history of coronary artery disease Mother Family history of glaucoma Father Hypertension Social History Social History Smoking status: Never smoker Second hand tobacco smoke exposure: No Alcohol intake: never Drinks per
[2023-07-17 13:11] VITALS: BMI 37.9
== END 2023-07-11 11:28 | disposition home or self-care (01) ==
LOC: ANHCSM 09:16
PROVIDERS: PCP Family Medicine; Visit Provider Nurse Practitioner Family
DX: G47.33 Obstructive sleep apnea (adult) (pediatric) (principal)
CPT/HCPCS: 95800

== ENCOUNTER 2023-07-24 08:26 | Outpatient (CLI) | payer BC, SELFPAY ==
[2023-08-04 19:15] VITALS: BMI 37.6
--- NOTE | 2023-08-04 19:15 | WPDSLEEPSTUD ---
Sleep Study Date of Study: 07/24/23 Ordering Provider: Cesar Dias MD Interpreting Physician: Shadia Sellers DO Sleep Study Type: BiPAP Titration Height: 1.8 m Weight: 122.47 kg Body Mass Index: 37.6 Neck Circumference (inches): 20 [place]: 16 Reason for Sleep Study The patient had a WatchPAT home sleep test on 07/10/2023 that showed an overall AHI of 92.8, desaturation down to 57% and a KHOI of 15.7. Sleep History The patient is a 38 year old female with anxiety, hypertension, headaches, glaucoma, PCOS and obesity that had a sleep study by her primary care for evaluation of sleep apnea. She occasionally awakens sleep short of breath. She rarely awakens at night with belching or. She constantly snores and it is frequently loud that others complain. She constantly has trouble sleeping when she has a cold. She rarely wakes up gasping for air throughout the night. She constantly has breathing problems at night observed by herself or others. She occasionally sweats excessively at night. She rarely has heart palpitations or irregular heartbeats during the night. She frequently falls asleep during the day and frequently falls asleep while driving. She denies cataplexy. She occasionally has trouble at school or work due to sleepiness. She rarely feels unable to move while waking up or asleep. She rarely experiences vivid dreamlike scenes upon awakening or falling asleep. She rarely feels afraid of going to sleep. She occasionally has nightmares occasionally remembers her dreams. She occasionally has thoughts racing through her mind. She occasionally feels sad, depressed and anxious. She rarely has muscular tension. She denies noticing parts of her body jerk. She denies kicking during the night. She having crawling and aching feelings in her legs but rarely has leg pain during the night she denies grinding her teeth during sleep and denies awakening with morning jaw pain. She denies being bothered by pain during the day and denies being awakened by pain during the day. She occasionally wakes up stiff in morning. She occasionally wakes up with sore or achy muscles. She occasionally wakes up pain in the neck, spine and other joints. She goes to bed between 10-11 p.m. of both weekdays and weekends. It takes her 15-20 minutes to fall asleep. She wakes up 3 times times throughout the night to urinate and it takes her less of 5 minutes to fall back asleep. She has occasionally fallen asleep on the toilet. She wakes up at 6:00 a.m. on weekdays and between 7:30-9 a.m. on the weekends. She typically gets 6-7 hours of sleep per night. She will stay in bed for 5 minutes on weekdays and at 230 minutes on weekends after waking up in the morning. She currently lives with her and 3 children. She denies consuming any caffeinated beverages within 2 hours of bedtime. She denies engaging in physical exercise before bedtime. She will read before falling asleep. She will take naps in the afternoon or the evening but they are not refreshing. She consumes 1-3 caffeinated beverages per day. She denies tobacco, alcohol and recreational drug use. [facility] Past Medical History Medical History Abnormal uterine bleeding Eczema Glaucoma HTN (hypertension) Obesity PCOS (polycystic ovarian syndrome) Surgical History Surgical History H/O vaginal hysterectomy History of section S/P laser trabeculoplasty of eye Family History Family History Grandparent Cerebrovascular accident Diabetes mellitus Malignant neoplasm of prostate Family history of coronary artery disease Mother Family history of glaucoma Father Hypertension Social History Social History Smoking status: Never smoker [place]
== END 2023-07-25 07:45 | disposition home or self-care (01) ==
LOC: ANHCSM 08:28
PROVIDERS: PCP Family Medicine; Visit Provider Family Medicine
DX: G47.33 Obstructive sleep apnea (adult) (pediatric) (principal); I10 Essential (primary) hypertension
CPT/HCPCS: 95811